=== PATIENT | female | born 2000 | race Hispanic/Latino ===

== ENCOUNTER 2024-12-14 09:29 | Inpatient (IN) | payer BC, SELFPAY ==
[2024-12-13 11:04] LABS: Hematocrit 32.3 % (34.9-44.5); Hemoglobin 10.3 g/dL (12.0-15.5); Mean Corpuscular Hemoglobin 24.9 pg (27.0-33.0); Mean Corpuscular Volume 78.0 fL (81.6-98.3); Platelet Count 252 10x3/uL (150-450); Red Blood Cell (RBC) Count 4.14 10x6/uL (3.90-5.03); White Blood Cell (WBC) Count 8.68 10x3/uL (3.5-10.5)
[2024-12-13 11:36] LABS: Syphilis Antibody Index 0.06 S/CO (<1.00 Non-Reactive)
[2024-12-13 11:38] LABS: Hep B Surf Ag Non-Reactive S/CO (NonReactive)
[2024-12-14 10:41] VITALS: BMI 29.8
[2024-12-14] MEDS ORDERED: Meperidine HCl/PF 25 MG (1 mL) VIAL SLOW IVP PRN (11:19)
[2024-12-14] MEDS ORDERED: Ondansetron PF 4 MG/2 ML Vial IVP PRN ×3 (11:19→11:28)
[2024-12-14] MEDS ORDERED: diphenhydrAMINE 50 MG/ML VIAL IVP PRN (11:19)
[2024-12-14] MEDS ORDERED: Carboprost 250 MCG/ML AMP IM PRN (11:28)
[2024-12-14] MEDS ORDERED: Famotidine/PF 20 mg/2ml Vial SLOW IVP PRN (11:28)
[2024-12-14] MEDS ORDERED: Acetaminophen 500 MG TAB PO PRN (11:28)
[2024-12-14] MEDS ORDERED: Bicitra 30 ML UDCUP PO PRN (11:28)
[2024-12-14] MEDS ORDERED: hydrALAZINE 20 MG/ML VIAL SLOW IVP PRN ×2 (11:28→17:02)
[2024-12-14] MEDS ORDERED: Diphenoxylate HCl/Atropine Tablet PO PRN (11:28)
[2024-12-14] MEDS ORDERED: Oxytocin 30 units/NS 500 ML 500 ML IV SCH (11:30)
[2024-12-14] MEDS ORDERED: Communication Order-Pharmacy FS SCH (11:30)
[2024-12-14] MEDS ORDERED: Ketorolac Tromethamine 30 MG (1 mL) VIAL IVP SCH (11:30)
[2024-12-14] MEDS: Tranexamic Acid 1,000 MG/10 ML VIAL IVP PRN (13:55)
[2024-12-14 15:08] LABS: Platelet Count 241.0 10x3/uL (150-450)
[2024-12-14 15:45] LABS: D-Dimer Test 5.9 mcg/mL (0.19-0.50); Fibrinogen 378.0 mg/dL (220-504); INR-International Normal Ratio 0.9; PTT 28.8 sec (22.0-33.0); Prothrombin Time 10.3 sec (9.5-12.1)
[2024-12-14] MEDS: Methylergonovine 0.2 MG/ML VIAL IM PRN (15:54)
[2024-12-14] MEDS: Ketorolac Tromethamine 30 MG (1 mL) VIAL IVP PRN (16:18)
[2024-12-14] MEDS ORDERED: Simethicone Chewable 80 MG TAB PO PRN (17:02)
[2024-12-14] MEDS ORDERED: Bisacodyl 10 MG SUPP PR PRN (17:02)
[2024-12-14] MEDS ORDERED: Lanolin Ointment 7 GM TUBE TOP PRN (17:02)
[2024-12-14 17:34] LABS: Hematocrit 25.2 % (34.9-44.5); Hemoglobin 8.0 g/dL (12.0-15.5); Mean Corpuscular Hemoglobin 25.2 pg (27.0-33.0); Mean Corpuscular Volume 79.5 fL (81.6-98.3); Platelet Count 221 10x3/uL (150-450); Red Blood Cell (RBC) Count 3.17 10x6/uL (3.90-5.03); White Blood Cell (WBC) Count 13.97 10x3/uL (3.5-10.5)
[2024-12-14] MEDS: Famotidine/PF 20 mg/2ml Vial ONE (17:56)
[2024-12-14] MEDS: Ondansetron PF 4 MG/2 ML Vial ONE (17:56)
[2024-12-14] MEDS: Oxytocin 10 UNITS/ML VIAL ONE ×2 (17:57→17:58)
[2024-12-14] MEDS: PHENYLEPHRINE-NS 100 MCG/ML 10 ML SYRINGE ONE (17:58)
[2024-12-14] MEDS: Boostrix 0.5 ML (Tdap) VIAL (>/=7 yrs of age) IM ONE (17:59)
[2024-12-14] MEDS: Ferrous Sulfate 325 MG TAB PO SCH (21:34)
[2024-12-15 06:42] LABS: Hematocrit 24.6 % (34.9-44.5); Hemoglobin 7.9 g/dL (12.0-15.5); Mean Corpuscular Hemoglobin 25.3 pg (27.0-33.0); Mean Corpuscular Volume 78.8 fL (81.6-98.3); Platelet Count 225 10x3/uL (150-450); Red Blood Cell (RBC) Count 3.12 10x6/uL (3.90-5.03); White Blood Cell (WBC) Count 15.02 10x3/uL (3.5-10.5)
[2024-12-15] MEDS: Ibuprofen 800 MG TAB PO SCH (14:48)
[2024-12-15] MEDS: HYDROcodone/Acetaminophen 5/325 mg Tablet PO PRN (14:52)
[2024-12-16] MEDS: Acetaminophen 325 MG TAB PO PRN (01:10)
[2024-12-16] MEDS: HYDROcodone/Acetaminophen 5/325 mg Tablet PO PRN (02:19)
[2024-12-16 08:02] VITALS: BP 98/44; TEMP 98.3
== END 2024-12-16 11:20 | disposition home or self-care (01) | DRG 787 ==
LOC: CSHLD 09:29 → CSHPP 17:11
PROVIDERS: ADMIT Family Medicine; ATTEND Family Medicine
PROC: 10D00Z1 Extraction of Products of Conception, Low, Open Approach (ICD-10-PCS; principal; 2024-12-14)
PROC: 4A1HXCZ Monitoring of Products of Conception, Cardiac Rate, External Approach (ICD-10-PCS; 2024-12-14)
DX: O34.211 Maternal care for low transverse scar from previous cesarean delivery (principal); F33.9 Major depressive disorder, recurrent, unspecified; O72.1 Other immediate postpartum hemorrhage; O99.02 Anemia complicating childbirth; O99.344 Other mental disorders complicating childbirth; D50.9 Iron deficiency anemia, unspecified; F43.10 Post-traumatic stress disorder, unspecified; Z90.89 Acquired absence of other organs; Z79.899 Other long term (current) drug therapy; Z98.890 Other specified postprocedural states; Z3A.39 39 weeks gestation of pregnancy; Z37.0 Single live birth
CPT/HCPCS: 36415; 51702; 85027; 85049; 85300; 85362; 85384; 85610; 85730; 86780; 86850; 86900; 86901; 87340; J1885; J2210; J2274; J2405; J2590; J3010